=== PATIENT | male | born 1970 | race American Indian/Alaskan Native ===

== ENCOUNTER 2018-04-20 13:43 | Emergency (ER) | payer MEDICAID, OTHER, SELFPAY ==
[2018-04-20 13:49] VITALS: BP 170/96; PULSE 90; RESP 19; TEMP 37.6; O2SAT 96; BMI 33.4
--- NOTE | 2018-04-20 15:03 | ED_ITS ---
HPI - Extremity Injury (Upper) General Chief Complaint: Extremity Injury, Upper Stated Complaint: cut left hand on chainsaw Time Seen by Provider: 04/20/18 15:03 Source: patient Mode of arrival: ambulatory Limitations: no limitations History of Present Illness HPI narrative: Patient is a 47-year-old [id number] male here for evaluation of a cut on his left hand. Patient states that he was walking on a slope surface with a chain saw that was not running at the time. He states that he slipped and fell in his right hand landed on the chain cutting it. He states that he washed it out prior to arrival in covered with a bandage. No other injuries reported from the fall. He states that his last tetanus shot was within the past 2 years. Related Data Allergies Allergy/AdvReac Type Severity Reaction Status Date / Time Penicillins Allergy Verified 04/20/18 15:17 Review of Systems Constitutional Denies fever(s) Cardiovascular Denies chest pain and Denies dyspnea Respiratory Denies dyspnea Musculoskeletal Denies myalgias, Denies arthralgias and Denies tingling Integumentary/Breasts Comments: Cut to the palm of his left hand Neurologic Denies focal weakness, Denies tingling and Denies paresthesias Hematologic/Lymphatic Comments: Not on anticoagulation PFSH Medical History Alcohol abuse (Acute) Surgical History No pertinent past surgical history (Acute) Social History Smoking Status: Current every day smoker Exam Initial Vital Signs Initial Vital Signs: Vital Signs Temperature 99.6 F 04/20/18 13:49 Pulse Rate 90 04/20/18 13:49 Respiratory Rate 19 04/20/18 13:49 Blood Pressure 170/96 H 04/20/18 13:49 Pulse Oximetry 96 04/20/18 13:49 Const General: cooperative, healthy appearing, well developed, well groomed and No acute distress Orientation: alert, awake and oriented x3 HENMT Head: normal to inspection and normocephalic Cardio Pulses: radial pulses present on the left Skin Other: 2 cm laceration to the palmar aspect of the left hand. Occurs at the fold of the hypothenar eminence just distal to the radial metacarpal joint. Neuro Other: Sensation intact to light touch to median nerve distribution left hand. No other sensory deficits noted Extrem Other: Full range of motion left wrist Psych Appearance: grossly normal and well kempt Procedures Laceration Repair Laceration 1: Site: hand Side (If applicable): left Size (cm): 2 Description: linear Depth: simple, single layer Local Anesthetic: lidocaine 1% Amount of anesthesia used (mL): 4 Pre-repair: wound explored, irrigated extensively and deep structures intact Skin layer closed with: nylon Size (cm): 4-0 Number of sutures: 3 Technique: simple, interrupted Course Orders Ordered: ED Orders 04/20/18 15:10 XR hand LT min 3V Stat Vital Signs - 8 hr 04/20/18 13:49 04/20/18 15:54 Temperature 99.6 F Pulse Rate 90 75 Respiratory Rate 19 Blood Pressure 170/96 H 153/98 H Pulse Oximetry 96 96 MDM - Extremity Injury (Upper) Imaging Data X-ray wrist: Radiologist's impression: PROCEDURE: XR HAND LT MIN 3V INDICATIONS: laceration palmar aspect base of thumb TECHNIQUE: 3 views of the hand(s) acquired. COMPARISON: None. FINDINGS: Bones: No fractures or dislocations. Carpal bones are normally aligned. No suspicious bony lesions. Soft tissues: No suspicious soft tissue calcifications. IMPRESSION: No fracture or foreign body seen. Dictated by: Polo Bone M.D. on 04/20/2018 at 15:54 Approved by: Polo Bone M.D. on 04/20/2018 at 15:55 [facility] Narrative Medical decision making narrative: Patient is neurovascularly intact. He is up- to-date on his tetanus shot. There were no other injuries reported from the fall except for the cut the left wrist which was closed as described above. No deep structures were found to be injury today. Patient is given care instructions with regard to the stitches and also the laceration. He is given return precautions. He expressed understanding and agreement with plan. Discharge Plan Departure Patient Disposition: Home Clinical Impression: Hand laceration Discharge Date/Time: 04/20/18 15:56 Interventions: ED Discharge Assessment Last Done: 04/20/18 15:54 Instructions: How to Care for a Laceration After Repair Activity Restrictions/Additional Instructions: The stitches do need to be removed in approximately 10 days. The bandage can stay on for the next 24 hr after that you can take it off. You can shower like normal. You can use soap and water like normal. Do not soak her hand anything. Return to the emergency department for any new or worsening symptoms
--- NOTE | 2018-04-20 15:10 | DI.RAD.S_ITS ---
PROCEDURE: XR HAND LT MIN 3V INDICATIONS: laceration palmar aspect base of thumb TECHNIQUE: 3 views of the hand(s) acquired. COMPARISON: None. FINDINGS: Bones: No fractures or dislocations. Carpal bones are normally aligned. No suspicious bony lesions. Soft tissues: No suspicious soft tissue calcifications. IMPRESSION: No fracture or foreign body seen. Dictated by: Polo Bone M.D. on 04/20/2018 at 15:54 Approved by: Polo Bone M.D. on 04/20/2018 at 15:55
--- NOTE | 2018-04-20 15:48 | PC.NURSE ---
cleansed and with normal saline after Dr. stitched area. Applied dressingof xerofoam, nonstick dressing, and curlex. Pt tolerated with out complaint.
[2018-04-20 15:54] VITALS: BP 153/98; PULSE 75; O2SAT 96
== END 2018-04-20 15:56 | disposition home or self-care (01) ==
PROVIDERS: Emergency Provider Emergency Medicine
DX: S61.412A Laceration without foreign body of left hand, initial encounter (principal); W26.8XXA Contact with other sharp object(s), not elsewhere classified, initial encounter
CPT/HCPCS: 12001; 73130; 99283

== ENCOUNTER 2018-05-02 10:01 | Emergency (ER) | payer MEDICAID, OTHER, SELFPAY ==
[2018-05-02 10:32] VITALS: BP 182/104; PULSE 70; RESP 20; TEMP 36.8; O2SAT 98
--- NOTE | 2018-05-02 12:38 | PC.NURSE ---
Pt arrives to the ED with the original dressing placed by ED staff 12 days ago when was here for the sutures
--- NOTE | 2018-05-02 12:48 | ED.RECABL ---
HPI - Recheck/Abnormal Lab/Rx General Chief Complaint: Recheck/Abnormal Lab/Rx Stated Complaint: HERE TO GET STITCHES OUT OF LEFT HAND Time Seen by Provider: 05/02/18 12:36 Source: patient Mode of arrival: ambulatory Limitations: no limitations History of Present Illness HPI narrative: Is a 47-year-old male who comes to the emergency department with complaint of pain and need for suture removal. Patient states he cut his left hand on the 20 of April. He was seen here he had 3 sutures placed and since then he has not removed the bandage that was on his hand, washed it or re-evaluated at. Patient [place] with a chain [place] that was off but he slipped and caught his hand on the change of the chain saw. Patient's tetanus is up-to-date. Patient has since had some increased swelling of the hand, he is able to flex and extend the fingers but he does not want to Um as it is uncomfortable. Patient states that he has not noticed any purulent discharge, he has had increasing pain at the site. He has not had any fevers, he denies any chest pain, shortness of breath or other symptoms. He does not have any numbness or tingling in the fingers but does have some generalized discomfort in the hand. Patient denies any other medical problems. 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 He denies any recent work since he injured his hand. He is right-hand dominant but injured his left hand. Related Data Previous Rx's Medication Instructions Recorded doxycycline hyclate 100 mg PO DAILY #20 tab 05/02/18 hydrocodone-acetaminophen [[place]] 1 tab PO Q6H PRN #5 tab 05/02/18 Allergies Allergy/AdvReac Type Severity Reaction Status Date / Time Penicillins Allergy Verified 04/20/18 15:17 Review of Systems Review of Systems ROS Unobtainable: All systems reviewed & are unremarkable except as noted in HPI and below Constitutional Denies fever(s) Musculoskeletal Reports as per HPI, Reports limited range of motion, Denies numbness, Denies tingling and Reports other (Hand pain) Integumentary/Breasts Reports non-healing lesions and Denies other (odor) Neurologic Denies numbness and Denies tingling PFS Medical History Alcohol abuse (Acute) Surgical History No pertinent past surgical history (Acute) Social History Smoking Status: Current every day smoker Exam Narrative Exam Narrative: GENERAL: Alert and oriented x three, obese male in moderate distress HEENT: Head normocephalic, atraumatic, EOMI, pupils reactive, face symmetric, moist mucous membranes NECK: Supple, full range of motion CARDIOVASCULAR: Regular rate and rhythm without murmurs, rubs or gallops. RESPIRATORY: Breath sounds equal bilaterally, no wheezes rales or rhonchi. ABDOMEN: Soft, nontender. Normoactive bowel sounds all 4 quadrants. No guarding or rebound, rigidity, no mass EXTREMITIES: patient has full range of motion of fingers but prefers not too, he does have full strength against flexion extension in all 5 digits. Patient has swelling throughout the hand and all 5 fingers. He does not have increased pain with passive flexion or extension of the fingers. Patient has some odor from the unhealed site. He appears to have some wound dehiscence and the edges appear slightly pale, there is no purulent fluid but the wound does appear to have opened up. I am not able to visualize any tendons or ligaments. Patient has 2+ radial pulse and cap refills less than 2 sec in all 5 fingers, #3 sutures are noted. NEUROLOGICAL: Cranial nerves II through XII grossly intact. Moving all extremities SKIN: Warm, dry, no petechiae, no rashes Initial Vital Signs Initial Vital Signs: Vital Signs Temperature 98.3 F 05/02/18 10:32 Pulse Rate 70 05/02/18 10:32 Respiratory Rate 20 05/02/18 10:32 Blood Pressure 182/104 H 05/02/18 10:32 Pulse Oximetry 98 05/02/18 10:32 Procedures [facility] Procedure Name of Procedure: Suture removal Side (if applicable): left Location: Palm of the patient's hand. Time out performed: Yes Technique/Description of procedure performed: Patient had lidocaine injected just along the edge of his dehisced wound, I injected 1 cc total Um along the edge of the wound with a 30 gauge needle, it was aspirated each time with no blood. Patient had decrease in discomfort and #3 sutures were removed in their entirety. The patient tolerated procedure well. Complications: none Course Orders Ordered: ED Orders 05/02/18 12:50 Complete Blood Count AUTO DIFF Stat 05/02/18 13:13 Basic Metabolic Panel Stat Blood Culture Stat 05/02/18 13:50 XR hand LT min 3V Stat Discontinued Medications Hydrocodone Bitart/Acetaminophen ([place] 5/325) 2 tab PO NOW ONE Stop: 05/02/18 15:23 Last Admin: 05/02/18 15:47 Dose: 2 tab Sodium Chloride (Normal Saline 0.9%) 1,000 mls @ 1,000 mls/hr IV BOLUS ONE Stop: 05/02/18 13:46 Last Infusion: 05/02/18 13:55 Dose: 0 mls/hr Admin: 05/02/18 13:01 Dose: 1,000 mls/hr Clindamycin Phosphate (Cleocin) 600 mg in 50 mls @ 50 mls/hr IV NOW ONE Stop: 05/02/18 13:47 Last Infusion: 05/02/18 14:09 Dose: 0 mls/hr Admin: 05/02/18 13:22 Dose: 50 mls/hr Ketorolac Tromethamine (Toradol) 30 mg IV NOW ONE Stop: 05/02/18 12:48 Last Admin: 05/02/18 13:00 Dose: 30 mg Lidocaine HCl (Xylocaine Jelly 2%) 1 applic TOP NOW ONE Stop: 05/02/18 12:48 Last Admin: 05/02/18 13:01 Dose: 1 applic Vital Signs - 8 hr 05/02/18 14:38 05/02/18 15:43 Pulse Rate 69 74 Respiratory Rate 19 20 Blood Pressure [Left Arm] 184/98 H 175/88 H Pulse Oximetry 96 96 MDM - Recheck/Abnormal Lab/Rx Lab Data Attestation: I reviewed the patient's lab results. Result diagrams: 05/02/18 12:50 05/02/18 13:13 Lab Results 05/02/18 05/02/18 Range/Units 12:50 13:13 WBC 12.6 H (4.5-11.0) X10^3/uL RBC 5.55 (4.5-5.9) X10^6/uL Hgb 16.6 (13.5-17.5) g/dL Hct 48.9 (41-53) % MCV 88.1 (80-100) fL MCH 30.0 (26-34) PG MCHC 34.0 (30-36) % RDW 14.7 (11.6-14.8) % Plt Count 317 (150-400) X10^3/uL Neut % (Auto) 68.0 (50-75) % Lymph % (Auto) 22.5 L (25-40) % [place] % (Auto) 6.1 (3-14) % Eos % (Auto) 2.4 (2-4) % Baso % (Auto) 1.0 (0-2) % Neut # (Auto) 8600 H (4732-0744) /uL Sodium 141 (137-145) mmol/L Potassium 4.4 (3.4-5.1) mmol/L Chloride 105 (98-107) mmol/L Carbon Dioxide 24 (22-32) mmol/L BUN 14 (9-20) mg/dL Creatinine 0.90 (0.66-1.25) mg/dL Estimated GFR > 60.0 (>60) mL/min BUN/Creatinine Ratio 15.6 (6-22) Glucose 113 H (70-100) mg/dL Calcium 9.1 (8.4-10.2) mg/dL Imaging Data hand xray: Radiologist's impression: [place] [address] XRay Report Signed Patient: Regan Conley MR#: [id number] : 1970 Acct:[id number] Age/Sex: 47 / M Date of Service: 05/02/18 Loc: ED Accession Number: [id number] Procedure: XR hand LT min 3V Ordering Provider: Shweta Dominguez D.O. PROCEDURE: XR HAND LT MIN 3V INDICATIONS: wound dehiscense after chainsaw accident and sutures TECHNIQUE: 3 views of the hand(s) acquired. COMPARISON: [facility], , XR HAND LT MIN 3V, 04/20/2018, 15:40. FINDINGS: Bones: No fractures or dislocations. Carpal bones are normally aligned. No suspicious bony lesions. Soft tissues: No suspicious soft tissue calcifications. IMPRESSION: No bony injuries. No soft tissue foreign body. Dictated by: Avis Neff M.D. on 05/02/2018 at 14:23 Approved by: Avis Neff M.D. on 05/02/2018 at 14:37 [facility] Narrative Medical decision making narrative: Patient Um after the area was cleaned and sutures removed he has some dehiscence but not excessive gapping. I am not able to visualize any tendons or ligaments. I reviewed the past chart and there did not appear to be any tendon or ligament damage involved and from physical exam patient does have flexion extension without any weakness. Patient was started on doxycycline, he was given a dose of clindamycin IV here in the department. X-ray was checked for any gas-forming organisms which was negative. Patient's tetanus is up-to-date per her recent chart and patient. I discussed with patient he needs to return if it is worsening at all. Otherwise asked him to follow up with Orthopedic surgery as this will likely take some time to heal and 1 make sure that he has full improvement. Patient is comfortable with this plan. He has contact number for Orthopedic surgery, given a short script for pain control. We also had an extensive discussion about making sure that he changes the bandage daily, keeping the area clean and dry and making sure that he returned if there are any new issues. Patient expresses understanding and that he knows how and needs to do appropriate wound care. We did discuss that if he cannot accomplish this himself he will return to the ER Discharge Plan Departure Patient Disposition: Home Clinical Impression: Dehiscence of wound of skin, Open wound of hand Discharge Date/Time: 05/02/18 16:10 Interventions: ED Discharge Assessment Last Done: 05/02/18 16:24 Instructions: DI for Wound Dehiscence Activity Restrictions/Additional Instructions: Follow up with orthopedic surgery Sunday for recheck. Call for an appointment. Take antibiotics until gone. Start oral antibiotics today. Take pain medication as prescribed, I do not drive, perform hazards activities or make any major decisions while taking this medication. You may also take ibuprofen 600 mg every 6 hr with this medication. Keep your hand elevated when you are not using it. Do not use your hand extensively as you have a wound dehiscence and the more use your hands more that wound will open. Return to the emergency department if the pain in her hand is worsening, if the swelling in her hand is worsening if you drainage, increasing redness, swelling, loss of sensation, numbness or tingling, weakness in her hands or fingers or other new or concerning symptoms. Prescriptions: New doxycycline hyclate 100 mg tablet 100 mg PO DAILY Qty: 20 RF: 0 hydrocodone-acetaminophen [[place]] 5-325 mg tablet 1 tab PO Q6H PRN (Reason: pain) Qty: 5 RF: 0 Referrals: Karina Henry MD [Non-Staff] - Sher Mcdermott MD [Physician] -
[2018-05-02] MEDS: KETOROLAC 60 MG/2 ML VIAL 30 MG IV (13:00)
[2018-05-02] MEDS: LIDOCAINE JELLY 2% 5 ML 1 APPLIC TOP (13:01)
[2018-05-02] MEDS: SODIUM CHLORIDE 0.9% 1,000 ML 1000 ML IV (13:01)
[2018-05-02 13:02] LABS: Add Manual Diff / Slide Review NO; Eosinophils Percent Auto 2.4 % (2-4); Hematocrit 48.9 % (41-53); Hemoglobin 16.6 g/dL (13.5-17.5); Lymphocytes Percent Auto 22.5 % (25-40); Mean Corpuscular Volume 88.1 fL (80-100); Monocytes Percent Auto 6.1 % (3-14); Neutrophils Absolute Auto 8600 /uL (1500-7000); Platelet Count 317 X10^3/uL (150-400); Red Blood Cell Count 5.55 X10^6/uL (4.5-5.9); Red Cell Distribution Width 14.7 % (11.6-14.8); White Blood Cell Count 12.6 X10^3/uL (4.5-11.0)
--- NOTE | 2018-05-02 13:04 | ED_ITS ---
HPI - Recheck/Abnormal Lab/Rx General Chief Complaint: Recheck/Abnormal Lab/Rx Stated Complaint: HERE TO GET STITCHES OUT OF LEFT HAND Time Seen by Provider: 05/02/18 12:36 Source: patient Mode of arrival: ambulatory Limitations: no limitations History of Present Illness HPI narrative: Is a 47-year-old male who comes to the emergency department with complaint of pain and need for suture removal. Patient states he cut his left hand on the 20 of April. He was seen here he had 3 sutures placed and since then he has not removed the bandage that was on his hand, washed it or re- evaluated at. Patient was walking down [place] with a chain saw that was off but he slipped and caught his hand on the change of the chain saw. Patient's tetanus is up-to-date. Patient has since had some increased swelling of the hand, he is able to flex and extend the fingers but he does not want to Um as it is uncomfortable. Patient states that he has not noticed any purulent discharge, he has had increasing pain at the site. He has not had any fevers, he denies any chest pain, shortness of breath or other symptoms. He does not have any numbness or tingling in the fingers but does have some generalized discomfort in the hand. Patient denies any other medical problems. 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 He denies any recent work since he injured his hand. He is right-hand dominant but injured his left hand. Related Data Previous Rx's Medication Instructions Recorded doxycycline hyclate 100 mg PO DAILY #20 tab 05/02/18 hydrocodone-acetaminophen [[place]] 1 tab PO Q6H PRN #5 tab 05/02/18 Allergies Allergy/AdvReac Type Severity Reaction Status Date / Time Penicillins Allergy Verified 04/20/18 15:17 Review of Systems Review of Systems ROS Unobtainable: All systems reviewed & are unremarkable except as noted in HPI and below Constitutional Denies fever(s) Musculoskeletal Reports as per HPI, Reports limited range of motion, Denies numbness, Denies tingling and Reports other (Hand pain) Integumentary/Breasts Reports non-healing lesions and Denies other (odor) Neurologic Denies numbness and Denies tingling PFS Medical History Alcohol abuse (Acute) Surgical History No pertinent past surgical history (Acute) Social History Smoking Status: Current every day smoker Exam Narrative Exam Narrative: GENERAL: Alert and oriented x three, obese male in moderate distress HEENT: Head normocephalic, atraumatic, EOMI, pupils reactive, face symmetric, moist mucous membranes NECK: Supple, full range of motion CARDIOVASCULAR: Regular rate and rhythm without murmurs, rubs or gallops. RESPIRATORY: Breath sounds equal bilaterally, no wheezes rales or rhonchi. ABDOMEN: Soft, nontender. Normoactive bowel sounds all 4 quadrants. No guarding or rebound, rigidity, no mass EXTREMITIES: patient has full range of motion of fingers but prefers not too, he does have full strength against flexion extension in all 5 digits. Patient has swelling throughout the hand and all 5 fingers. He does not have increased pain with passive flexion or extension of the fingers. Patient has some odor from the unhealed site. He appears to have some wound dehiscence and the edges appear slightly pale, there is no purulent fluid but the wound does appear to have opened up. I am not able to visualize any tendons or ligaments. Patient has 2+ radial pulse and cap refills less than 2 sec in all 5 fingers, #3 sutures are noted. NEUROLOGICAL: Cranial nerves II through XII grossly intact. Moving all extremities SKIN: Warm, dry, no petechiae, no rashes Initial Vital Signs Initial Vital Signs: Vital Signs Temperature 98.3 F 05/02/18 10:32 Pulse Rate 70 05/02/18 10:32 Respiratory Rate 20 05/02/18 10:32 Blood Pressure 182/104 H 05/02/18 10:32 Pulse Oximetry 98 05/02/18 10:32 Procedures [facility] [place] Procedure Name of Procedure: Suture removal Side (if applicable): left Location: Palm of the patient's hand. Time out performed: Yes Technique/Description of procedure performed: Patient had lidocaine injected just along the edge of his dehisced wound, I injected 1 cc total Um along the edge of the wound with a 30 gauge needle, it was aspirated each time with no blood. Patient had decrease in discomfort and #3 sutures were removed in their entirety. The patient tolerated procedure well. Complications: none Course Orders Ordered: ED Orders 05/02/18 12:50 Complete Blood Count AUTO DIFF Stat 05/02/18 13:13 Basic Metabolic Panel Stat Blood Culture Stat 05/02/18 13:50 XR hand LT min 3V Stat Discontinued Medications Hydrocodone Bitart/Acetaminophen ([place] 5/325) 2 tab PO NOW ONE Stop: 05/02/18 15:23 Last Admin: 05/02/18 15:47 Dose: 2 tab Sodium Chloride (Normal Saline 0.9%) 1,000 mls @ 1,000 mls/hr IV BOLUS ONE Stop: 05/02/18 13:46 Last Infusion: 05/02/18 13:55 Dose: 0 mls/hr Admin: 05/02/18 13:01 Dose: 1,000 mls/hr Clindamycin Phosphate (Cleocin) 600 mg in 50 mls @ 50 mls/hr IV NOW ONE Stop: 05/02/18 13:47 Last Infusion: 05/02/18 14:09 Dose: 0 mls/hr Admin: 05/02/18 13:22 Dose: 50 mls/hr Ketorolac Tromethamine (Toradol) 30 mg IV NOW ONE Stop: 05/02/18 12:48 Last Admin: 05/02/18 13:00 Dose: 30 mg Lidocaine HCl (Xylocaine Jelly 2%) 1 applic TOP NOW ONE Stop: 05/02/18 12:48 Last Admin: 05/02/18 13:01 Dose: 1 applic Vital Signs - 8 hr 05/02/18 14:38 05/02/18 15:43 Pulse Rate 69 74 Respiratory Rate 19 20 Blood Pressure [Left Arm] 184/98 H 175/88 H Pulse Oximetry 96 96 MDM - Recheck/Abnormal Lab/Rx Lab Data Attestation: I reviewed the patient's lab results. Result diagrams: 05/02/18 12:50 05/02/18 13:13 Lab Results 05/02/18 05/02/18 Range/Units 12:50 13:13 WBC 12.6 H (4.5-11.0) X10^3/uL RBC 5.55 (4.5-5.9) X10^6/uL Hgb 16.6 (13.5-17.5) g/dL Hct 48.9 (41-53) % MCV 88.1 (80-100) fL MCH 30.0 (26-34) PG MCHC 34.0 (30-36) % RDW 14.7 (11.6-14.8) % Plt Count 317 (150-400) X10^3/uL Neut % (Auto) 68.0 (50-75) % Lymph % (Auto) 22.5 L (25-40) % [place] % (Auto) 6.1 (3-14) % Eos % (Auto) 2.4 (2-4) % Baso % (Auto) 1.0 (0-2) % Neut # (Auto) 8600 H (7171-5615) /uL Sodium 141 (137-145) mmol/L Potassium 4.4 (3.4-5.1) mmol/L Chloride 105 (98-107) mmol/L Carbon Dioxide 24 (22-32) mmol/L BUN 14 (9-20) mg/dL Creatinine 0.90 (0.66-1.25) mg/dL Estimated GFR > 60.0 (>60) mL/min BUN/Creatinine Ratio 15.6 (6-22) Glucose 113 H (70-100) mg/dL Calcium 9.1 (8.4-10.2) mg/dL Imaging Data hand xray: Radiologist's impression: [place] [address] XRay Report Signed Patient: Regan Conley MR#: [id number] : 1970 Acct:[id number] Age/Sex: 47 / M Date of Service: 05/02/18 Loc: ED Accession Number: [id number] Procedure: XR hand LT min 3V Ordering Provider: Shweta Dominguez D.O. PROCEDURE: XR HAND LT MIN 3V INDICATIONS: wound dehiscense after chainsaw accident and sutures TECHNIQUE: 3 views of the hand(s) acquired. COMPARISON: [facility], , XR HAND LT MIN 3V, 04/20/2018, 15:40. FINDINGS: Bones: No fractures or dislocations. Carpal bones are normally aligned. No suspicious bony lesions. Soft tissues: No suspicious soft tissue calcifications. IMPRESSION: No bony injuries. No soft tissue foreign body. Dictated by: Avis Neff M.D. on 05/02/2018 at 14:23 Approved by: Avis Neff M.D. on 05/02/2018 at 14:37 [facility] Narrative Medical decision making narrative: Patient Um after the area was cleaned and sutures removed he has some dehiscence but not excessive gapping. I am not able to visualize any tendons or ligaments. I reviewed the past chart and there did not appear to be any tendon or ligament damage involved and from physical exam patient does have flexion extension without any weakness. Patient was started on doxycycline, he was given a dose of clindamycin IV here in the department. X-ray was checked for any gas-forming organisms which was negative. Patient's tetanus is up-to-date per her recent chart and patient. I discussed with patient he needs to return if it is worsening at all. Otherwise asked him to follow up with Orthopedic surgery as this will likely take some time to heal and 1 make sure that he has full improvement. Patient is comfortable with this plan. He has contact number for Orthopedic surgery, given a short script for pain control. We also had an extensive discussion about making sure that he changes the bandage daily, keeping the area clean and dry and making sure that he returned if there are any new issues. Patient expresses understanding and that he knows how and needs to do appropriate wound care. We did discuss that if he cannot accomplish this himself he will return to the ER Discharge Plan Departure Patient Disposition: Home Clinical Impression: Dehiscence of wound of skin, Open wound of hand Discharge Date/Time: 05/02/18 16:10 Interventions: ED Discharge Assessment Last Done: 05/02/18 16:24 Instructions: DI for Wound Dehiscence Activity Restrictions/Additional Instructions: Follow up with orthopedic surgery Sunday for recheck. Call for an appointment. Take antibiotics until gone. Start oral antibiotics today. Take pain medication as prescribed, I do not drive, perform hazards activities or make any major decisions while taking this medication. You may also take ibuprofen 600 mg every 6 hr with this medication. Keep your hand elevated when you are not using it. Do not use your hand extensively as you have a wound dehiscence and the more use your hands more that wound will open. Return to the emergency department if the pain in her hand is worsening, if the swelling in her hand is worsening if you drainage, increasing redness, swelling , loss of sensation, numbness or tingling, weakness in her hands or fingers or other new or concerning symptoms. Prescriptions: New doxycycline hyclate 100 mg tablet 100 mg PO DAILY Qty: 20 RF: 0 hydrocodone-acetaminophen [[place]] 5-325 mg tablet 1 tab PO Q6H PRN (Reason: pain) Qty: 5 RF: 0 Referrals: Karina Henry MD [Non-Staff] - Sher Mcdermott MD [Physician] -
[2018-05-02] MEDS: CLINDAMYCIN 600 MG/50 ML PIGGYBACK 50 MG IV (13:22)
[2018-05-02 13:35] LABS: BUN Creatinine Ratio 15.6 (6-22); Blood Urea Nitrogen 14 mg/dL (9-20); Calcium 9.1 mg/dL (8.4-10.2); Carbon Dioxide 24 mmol/L (22-32); Chloride 105 mmol/L (98-107); Estimated Glomerular Filt Rate > 60.0 mL/min (>60); Glucose 113 mg/dL (70-100); HEMOLYSIS < 15 (0-50); Potassium 4.4 mmol/L (3.4-5.1); Sodium 141 mmol/L (137-145)
--- NOTE | 2018-05-02 13:50 | DI.RAD.S_ITS ---
PROCEDURE: XR HAND LT MIN 3V INDICATIONS: wound dehiscense after chainsaw accident and sutures TECHNIQUE: 3 views of the hand(s) acquired. COMPARISON: Located [facility], CR, XR HAND LT MIN 3V, 04/20/2018, 15:40. FINDINGS: Bones: No fractures or dislocations. Carpal bones are normally aligned. No suspicious bony lesions. Soft tissues: No suspicious soft tissue calcifications. IMPRESSION: No bony injuries. No soft tissue foreign body. Dictated by: Avis Neff M.D. on 05/02/2018 at 14:23 Approved by: Avis Neff M.D. on 05/02/2018 at 14:37
[2018-05-02 14:38] VITALS: BP 184/98; PULSE 69; RESP 19; O2SAT 96
[2018-05-02 15:43] VITALS: BP 175/88; PULSE 74; RESP 20; O2SAT 96
[2018-05-02] MEDS: HYDROCODONE/ACET 5/325 TABLET 2 TAB PO (15:47)
--- NOTE | 2018-05-02 16:22 | PC.NURSE ---
L hand wound cleaned with chlorhexadine and bacitracin applied and covered with non-adhevise dressing. [place] applied gently on affected hand and pt tolerated well. Wound care dressing material provided for home care and Pt advised to watch for worsening pain, erythema, discharge, warmth, fever/chills and etc.
== END 2018-05-02 16:10 | disposition home or self-care (01) ==
PROVIDERS: Emergency Provider Emergency Medicine
DX: Z48.02 Encounter for removal of sutures (principal)
CPT/HCPCS: 36415; 36591; 73130; 80048; 85025; 87040; 96361; 96365; 96375; 99284; 99285; J1885

== ENCOUNTER 2022-02-19 12:13 | Emergency (ER) | payer MEDICAID, OTHER, SELFPAY ==
[2022-02-19 12:17] VITALS: BP 150/83; PULSE 73; RESP 16; TEMP 36.5; O2SAT 100; BMI 26.2
--- NOTE | 2022-02-19 12:22 | DI.RAD.S_ITS ---
PROCEDURE: XR ACUTE ABDOMEN SERIES INDICATIONS: abdominal pain TECHNIQUE: One view chest and two views of the abdomen were acquired. COMPARISON: None. FINDINGS: Surgical changes and devices: None. Chest: Lungs are clear. Heart size is normal. No pleural effusions. No pneumoperitoneum. Abdomen: Scattered small bowel and colonic gas. No dilated loops of bowel seen. Prominent stool in the right colon. No suspicious calcifications. Visualized solid organ contours appear normal. Bones: No suspicious bony lesions. IMPRESSION: No acute cardiopulmonary abnormality. Nonobstructive bowel gas pattern. Prominent stool in the right colon suggesting constipation. Dictated by: John Myles M.D. on 02/19/2022 at 12:08 Approved by: John Myles M.D. on 02/19/2022 at 12:09
--- NOTE | 2022-02-19 12:28 | ED_ITS ---
HPI - Abdominal Pain General Chief Complaint: Abdominal Pain Stated Complaint: constipation and abdomen pain. Time Seen by Provider: 02/19/22 12:22 Source: patient and EMS Mode of arrival: EMS History of Present Illness HPI narrative: 51-year-old male former smoker with history of prior stroke and seizures presents by EMS for evaluation of ongoing abdominal discomfort and inability to have a bowel movement. He states that he has been having this trouble for least 1 week and had been seen at an outside facility about 1 week ago and has been taking MiraLax and senna. He still has not had a bowel movement but is passing gas. He is becoming increasingly distended and feels nauseated but denies any vomiting. He is had no fever or chills. He denies any dietary change or new medications prior to this. He is had no abdominal surgeries. He denies any trouble urinating Related Data Previous Rx's Medication Instructions Recorded doxycycline hyclate 100 mg tablet 100 mg PO DAILY #20 tabs 05/02/18 hydrocodone 5 mg-acetaminophen 325 1 tab PO Q6H PRN pain #5 tabs 05/02/18 mg tablet ([place]) Allergies Allergy/AdvReac Type Severity Reaction Status Date / Time Penicillins Allergy Verified 02/19/22 12:21 Review of Systems Review of Systems Narrative: GENERAL: Denies chills, fatigue, malaise, fever, sweats. HEENT: Denies sinus pain, ear pain, sore throat, difficulty swallowing, dizziness. RESPIRATORY: Denies dyspnea, cough, wheezing, hemoptysis, sputum. CARDIOVASCULAR: Denies chest pain, palpitations, orthopnea, edema, GASTROINTESTINAL: See HPI : Denies dysuria, frequency, incontinence, hematuria, urinary retention. MUSCULOSKELETAL: denies weakness, joint pain, or bony pain SKIN: Denies rash, skin lesions, or other NEUROLOGIC: Denies weakness, headache, numbness, change in speech, confusion, seizures, incoordination. PSYCHIATRIC: No concerning psychosocial issues. 12 point review of systems is negative except for those stated above Patient History Medical History Alcohol abuse Surgical History No pertinent past surgical history Social History Smoking Status: Former smoker Smoking Status: Former smoker Substance Use Type: does not use Exam Narrative Exam Narrative: GENERAL: [51] year old patient appears stated age. Well-developed patient, in mild distress. HEAD: Atraumatic. Normocephalic. EYES: Pupils equal round and reactive. Extraocular motions intact. No scleral icterus. No injection or drainage. ENT: Nose without bleeding, purulent drainage. Throat without erythema, tonsillar hypertrophy or exudate. Airway patent. NECK: Trachea midline. Non tender CARDIOVASCULAR: Regular rate and rhythm without murmurs, gallops, or rubs. RESPIRATORY: Clear to auscultation. Breath sounds equal bilaterally. No wheezes, rales, or rhonchi. GASTROINTESTINAL: Abdomen soft, mild distention, bowel sounds present but decreased, generalized tenderness, no peritoneal signs EXTREMITIES: No edema or joint tenderness. BACK: Nontender without deformity or crepitance. No flank tenderness. NEURO: AOx3. SKIN: No rash or erythema of visible areas Initial Vital Signs Initial Vital Signs: Vital Signs Temperature 97.7 F 02/19/22 12:17 Pulse Rate 73 02/19/22 12:17 Respiratory Rate 16 02/19/22 12:17 Blood Pressure 150/83 H 02/19/22 12:17 Pulse Oximetry 100 02/19/22 12:17 Oxygen Delivery Method 02/19/22 12:17 Course Orders Ordered: ED Orders 02/19/22 12:22 XR acute abdomen series Stat 02/19/22 13:31 Comprehensive Metabolic Panel Stat Lipase Stat 02/19/22 14:10 Complete Blood Count AUTO DIFF Stat Discontinued Medications Bisacodyl (Bisacodyl 10 Mg Supp) 10 mg NC NOW ONE Stop: 02/19/22 14:32 Last Admin: 02/19/22 14:41 Dose: 10 mg Documented By: RB Sodium Chloride (Normal Saline 0.9%) 1,000 mls @ 1,000 mls/hr IV BOLUS ONE Stop: 02/19/22 13:21 Last Infusion: 02/19/22 15:41 Dose: 0 mls/hr Documented By: Admin: 02/19/22 12:55 Dose: 1,000 mls/hr Documented By: KB Vital Signs Vital signs: Vital Signs - 8 hr 02/19/22 12:17 02/19/22 15:49 Temperature 97.7 F Pulse Rate 73 73 Respiratory Rate 16 16 Blood Pressure 150/83 H 169/94 H Pulse Oximetry 100 100 Oxygen Delivery Method Room Air Room Air MDM - Abdominal Pain Lab Data Result diagrams: 02/19/22 14:10 02/19/22 13:31 Labs: Lab Results 02/19/22 02/19/22 Range/Units 13:31 14:10 WBC 7.3 (4.5-11.0) X10^3/uL RBC 4.73 (4.5-5.9) X10^6/uL Hgb 14.0 (13.5-17.5) g/dL Hct 40.8 L (41-53) % MCV 86.3 (80-100) fL MCH 29.5 (26-34) PG MCHC 34.2 (30-36) % RDW 14.4 (11.6-14.8) % Plt Count 269 (150-400) X10^3/uL Neut % (Auto) 66.1 (50-75) % Lymph % (Auto) 23.9 L (25-40) % [place] % (Auto) 5.2 (3-14) % Eos % (Auto) 2.0 (2-4) % Baso % (Auto) 2.8 H (0-2) % Neut # (Auto) 4800 (3093-5609) /uL Lymph # (Auto) 1700 (7909-0611) /uL [place] # (Auto) 400 (0-900) /uL Eos # (Auto) 100 (0-450) /uL Baso # (Auto) 200 H (0-100) /uL Sodium 139 (137-145) mmol/L Potassium 4.9 (3.4-5.1) mmol/L Chloride 103 (98-107) mmol/L Carbon Dioxide 26 (22-32) mmol/L BUN 19 (9-20) mg/dL Creatinine 0.73 (0.66-1.25) mg/dL Estimated GFR > 60 (>60) mL/min BUN/Creatinine Ratio 26.0 H (6-22) Glucose 99 (70-100) mg/dL Calcium 9.5 (8.4-10.2) mg/dL Total Bilirubin 0.4 (0.2-1.3) mg/dL AST 24 (17-59) IU/L ALT 30 (<50) IU/L Alkaline Phosphatase 56 (38-126) U/L Total Protein 7.8 (6.3-8.2) g/dL Albumin 4.9 (3.5-5.0) g/dL Globulin 2.9 (1.7-4.1) g/dL Albumin/Globulin Ratio 1.7 (1.0-2.8) Lipase 90 (23-300) U/L Point of care testing: Urine Dip Bedside Urine Glucose Negative Bedside Urine Bilirubin - Negative Bedside Urine Ketone - Negative Urine Specific [place] 1.010 Bedside Urine Occult Blood - Negative Bedside Urine pH 6 Bedside Urine Protein - Negative Bedside Urine Urobilinogen - Negative Bedside Urine Nitrite - Negative Bedside Urine Leukocytes - Negative Esterase Imaging Data Chest x-ray: Radiologist's Impression: [address] [address] XRay Report Signed Patient: Regan Conley MR#: [id number] : 1970 Acct:[id number] Age/Sex: 51 / M Date of Service: 02/19/22 Loc: ED Accession Number: [id number] ?? Procedure: XR acute abdomen series Ordering Provider: Gilson Rod D.O. PROCEDURE:? XR ACUTE ABDOMEN SERIES ? INDICATIONS:? abdominal pain ? TECHNIQUE:? One view chest and two views of the abdomen were acquired.? ? COMPARISON:? None. ? FINDINGS:? ? Surgical changes and devices:? None.? ? Chest:? Lungs are clear.? Heart size is normal.? No pleural effusions.? No pneumoperitoneum.? ? Abdomen:? Scattered small bowel and colonic gas. No dilated loops of bowel seen.? Prominent stool in the right colon.? No suspicious calcifications.? Visualized solid organ contours appear normal.? ? Bones:? No suspicious bony lesions.? ? IMPRESSION:? No acute cardiopulmonary abnormality. Nonobstructive bowel gas pattern.? Prominent stool in the right colon suggesting constipation.? ? Dictated by: John Myles M.D. on 02/19/2022 at 12:08 ? ? Approved by: John Myles M.D. on 02/19/2022 at 12:09 ? MDM Narrative Medical decision making narrative: Patient is feeling some improvement after the above-stated therapies. He has very minimal pain, is passing gas and passed a small amount of stool. When given the option for an enema he states he would prefer to go home given his improvement. Imaging shows a large stool burden but no evidence of an obstructive process. Abdomen is soft and minimally tender. Patient given extensive return precautions and questions have been answered to his apparent satisfaction Discharge Plan Departure Patient Disposition: Home Clinical Impression: Acute constipation Instructions: DI for Constipation Activity Restrictions/Additional Instructions: *You have been diagnosed with [ abdominal pain due to constipation ] *What to do: *Take over the counter medications as directed: 1. Metamucil - is a bulk forming laxative and adds fiber 2. Colace - softens your stool 3. Dulcolax suppository - stimulates your bowels *Follow up with your primary care provider in 2-3 days, call for appointment *Return to ER if you should have any new, worsening or concerning symptoms *Drink plenty of water and eat foods high in fiber *Stay as active as you can as this helps move your bowels as well Prescriptions: No Action doxycycline hyclate 100 mg tablet 100 mg PO DAILY Qty: 20 0RF hydrocodone-acetaminophen [[place]] 5-325 mg tablet 1 tab PO Q6H PRN (Reason: pain) Qty: 5 0RF Referrals: Miscellaneous,Doctor, [Non-Staff] -
[2022-02-19] MEDS: SODIUM CHLORIDE 0.9% 1,000 ML 1000 ML IV (12:55)
[2022-02-19 14:01] LABS: Alanine Aminotransferase 30 IU/L (<50); Albumin 4.9 g/dL (3.5-5.0); Albumin Globulin Ratio 1.7 (1.0-2.8); Alkaline Phosphatase 56 U/L (38-126); Aspartate Aminotransferase 24 IU/L (17-59); Bilirubin Total 0.4 mg/dL (0.2-1.3); Blood Urea Nitrogen 19 mg/dL (9-20); Calcium 9.5 mg/dL (8.4-10.2); Carbon Dioxide 26 mmol/L (22-32); Chloride 103 mmol/L (98-107); Estimated Glomerular Filt Rate > 60 mL/min (>60); Globulin 2.9 g/dL (1.7-4.1); Glucose 99 mg/dL (70-100); HEMOLYSIS 23 (0-50); Lipase 90 U/L (23-300); Potassium 4.9 mmol/L (3.4-5.1); Sodium 139 mmol/L (137-145); Total Protein 7.8 g/dL (6.3-8.2)
[2022-02-19 14:22] LABS: Add Manual Diff / Slide Review NO; Basophils Absolute Auto 200 /uL (0-100); Basophils Percent Auto 2.8 % (0-2); Eosinophils Absolute Auto 100 /uL (0-450); Hematocrit 40.8 % (41-53); Lymphocytes Absolute Auto 1700 /uL (1100-4500); Lymphocytes Percent Auto 23.9 % (25-40); Mean Corpuscular HGB Conc 34.2 % (30-36); Mean Corpuscular Hemoglobin 29.5 PG (26-34); Mean Corpuscular Volume 86.3 fL (80-100); Monocytes Absolute Auto 400 /uL (0-900); Monocytes Percent Auto 5.2 % (3-14); Neutrophils Absolute Auto 4800 /uL (1500-7000); Neutrophils Percent Auto 66.1 % (50-75); Platelet Count 269 X10^3/uL (150-400); Red Blood Cell Count 4.73 X10^6/uL (4.5-5.9); Red Cell Distribution Width 14.4 % (11.6-14.8); White Blood Cell Count 7.3 X10^3/uL (4.5-11.0)
[2022-02-19] MEDS: BISACODYL 10 MG SUPP PR (14:41)
[2022-02-19 15:49] VITALS: BP 169/94; PULSE 73; RESP 16; O2SAT 100
== END 2022-02-19 16:02 | disposition home or self-care (01) ==
PROVIDERS: Emergency Provider Emergency Medicine
DX: R10.9 Unspecified abdominal pain (principal); K59.00 Constipation, unspecified
CPT/HCPCS: 36415; 74022; 80053; 81003; 83690; 85025; 96360; 96361; 99284